=== PATIENT | female | born 1960 | race Caucasian/White ===

== ENCOUNTER 2018-11-06 08:22 | Day surgery (SDC) | payer BC ==
[2018-10-31 11:26] VITALS: BMI 42.1
[2018-11-06] MEDS ORDERED: oxyCODONE HCL 5 MG TABLET PO PRN (08:23)
[2018-11-06] MEDS ORDERED: ONDANSETRON 4 MG/2 ML VIAL IVPUSH PRN (08:23)
[2018-11-06] MEDS ORDERED: LACTATED RINGERS SOLUTION 1,000 ML IV SCH (08:30)
[2018-11-06] MEDS ORDERED: oxyCODONE HCL 10 MG SUSTAINED ACTING TABLET PO ONE (09:11)
[2018-11-06] MEDS ORDERED: LIDOCAINE 1%/EPI 1:100000 (20 ML MULTI DOSE VIAL) ONE (10:16)
[2018-11-06] MEDS ORDERED: THROMBIN (RECOMBINANT) 5,000 UNIT VIAL TP ONE (10:16)
[2018-11-06] MEDS ORDERED: methylPREDNISolone ACET (DEPO) 40 MG/1 ML VIAL ONE (10:16)
[2018-11-06] MEDS ORDERED: GUM MASTIC/STORAX/MSAL/ALCOHOL 1 DRP DROPSBTL MC ONE (10:16)
[2018-11-06] MEDS ORDERED: DEXAMETHASONE SOD PHOSPHATE/PF 10 MG/ML SDV ONE (10:40)
[2018-11-06] MEDS ORDERED: MIDAZOLAM HCL 2 MG/2 ML SINGLE DOSE VIAL ONE ×2 (10:40→11:28)
[2018-11-06] MEDS ORDERED: BUPIVACAINE HCL/PF 0.5% (5 MG/ML) 30 ML VIAL IJ ONE (10:40)
--- NOTE | 2018-11-06 10:40 | HP ---
History & Physical Update - History History: No Change - Physical Physical: No Change - Assessment Assessment: No Change - Plan Plan: No Change
[2018-11-06] MEDS ORDERED: DEXMEDETOMIDINE HCL 200 MCG/2 ML IVPB ONE (10:45)
[2018-11-06] MEDS ORDERED: ONDANSETRON 4 MG/2 ML VIAL ONE (11:17)
[2018-11-06] MEDS ORDERED: ceFAZolin SODIUM 1 GM VIAL ONE ×2 (11:17→11:24)
[2018-11-06] MEDS ORDERED: THROMBIN (BOVINE) 5,000 UNIT VIAL TP ONE (11:42)
[2018-11-06] MEDS ORDERED: EPHEDRINE SULFATE/0.9% NACL/PF 50 MG/10 ML SYRINGE NR ONE (11:42)
--- NOTE | 2018-11-06 12:54 | OP ---
Operative Note - Note: Operative Date: 11/06/18 Pre-Operative Diagnosis: lumbar stenosis, disc herniation Operation: laminectomy of L4-5, microdisectomy Surgeon: Jeremie Easton Rug Sizer: Deanna Stevens Anesthesiologist/WEB GRAPHIC DESIGNER: Peewee Zamora Anesthesia: General Estimated Blood Loss (mls): 10 Fluid Volume Replaced (mls): 1,900 Operative Report Dictated: Yes
--- NOTE | 2018-11-06 12:55 | SURG ---
Surgery Brown Sourer Note Brown Sourer: Deanna Stevens PA-C Date of Service: 11/06/18 Diagnosis: lumbar stenosis, disc herniation Procedure: laminectomy of L4-5, microdisectomy I was present for the entirety of the operative procedure. For further detail, please refer to operative report. Visit type - Case Type Case Type: Scheduled - Emergency Emergency Visit: No - New patient This patient is new to me today: Yes Date on this admission: 11/06/18
--- NOTE | 2018-11-06 14:08 | OP ---
DATE OF OPERATION: 11/06/2018 PREOPERATIVE DIAGNOSIS: Spinal stenosis L4-L5. POSTOPERATIVE DIAGNOSIS: Spinal stenosis L4-L5. PROCEDURE PERFORMED: Laminectomy L4-L5. SURGEON: Jeremie Easton MD GAGGERMAN: KATRINA Garibay ESTIMATED BLOOD LOSS: 50 mL. INTRAVENOUS FLUIDS: Per anesthesia. ANESTHESIA: Spinal/TLIP. COMPLICATIONS: None. DISPOSITION: Patient brought to the PACU in stable condition. INDICATIONS FOR SURGERY: Patient is a 58-year-old female who has been suffering from pain from her back down her legs. X-rays and MRI were completed, which noted that she had spinal stenosis at L4-L5. She had gone through an exhaustive course of treatment for this, which included medications, physical therapy as well as injections. Unfortunately, her pain continued to persist despite all this. At this point, risks, benefits, and alternatives were discussed, and the patient consented to surgery. DESCRIPTION OF PROCEDURE: Patient was brought to the operating room by anesthesia staff. After appropriate patient identification was performed, spinal anesthesia was given. . Patient was able to position herself prone onto the OR table with all areas and bony prominences well padded at this time. Two needles were placed into the back to oliver off the L4-5 level. X-ray was taken to confirm this was correct. Needle was removed, and 10 mL of lidocaine with epinephrine was injected into her back. At this time, her back was prepped and draped in a sterile manner. At this point, time-out was completed. An incision was made from the top of L4 down to the bottom of L5. Dissection was carried down to the fascia. Fascia was split open at this time, and appropriate retractor was then placed in. A spinal needle was placed onto the L4 lamina. X-ray taken to confirm this was correct. Needle was removed, and the interspinous ligament at L4-5 was removed. Subsequently, the L4, L5 spinous processes were removed. The lamina was removed. Flavum was removed. A full decompression was performed such that by the end of the procedure the L5 nerve root appeared to be well decompressed. All bleeding was well controlled at this time. was placed over the nerve root. FloSeal was placed over that. The fascia was closed with a No. 1 Vicryl suture. Subcutaneous tissue was closed with 2-0 Vicryl suture. Skin was closed with 3-0 Monocryl suture. Dermabond was applied. Steri-Strips were applied. Sterile dressing was applied. Patient was placed supine on the OR bed and brought to the PACU in stable condition. JEREMIE EASTON M.D. DONNA/[id number]
[2018-11-06 14:31] VITALS: TEMP 98.6
[2018-11-06 18:41] VITALS: BP 117/63; PULSE 72
== END 2018-11-06 17:30 | disposition home or self-care (01) ==
LOC: FASU 08:22
PROVIDERS: ATTEND Orthopaedic Surgery Orthopaedic Surgery of the Spine
PROC: 01NB0ZZ Release Lumbar Nerve, Open Approach (ICD-10-PCS; principal; 2018-11-06 11:36)
DX: M48.061 Spinal stenosis, lumbar region without neurogenic claudication (principal)
CPT/HCPCS: 72100-TC-FY; 76000-TC-FY; 82962; 94760